=== PATIENT | female | born 2000 | race Caucasian/White ===

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

== ENCOUNTER 2022-01-15 19:41 | Emergency (ER) | payer SELFPAY ==
[~2022-01-15] VITALS: Ht 160 cm; Wt 86.2 kg
[~2022-01-15 19:41] MED LIST: LID5T TP; NAPR-54 PO
[2022-01-15 20:00] VITALS: BP 141/82
[2022-01-15] MEDS ORDERED: KETOROLAC 60 MG/2 ML VIAL IM ONE (20:10)
--- NOTE | 2022-01-15 20:10 | NUR ---
PT TAKEN TO BED 11.
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
--- NOTE | 2022-01-15 20:50 | NUR ---
ER MD AT BEDSIDE PERFORMING EXAM
--- NOTE | 2022-01-15 21:00 | NUR ---
ER MD AT BEDSIDE PERFORMING ULTRASOUND
[2022-01-15] MEDS ORDERED: IBUP-2213 PO (22:03)
[2022-01-15] MEDS ORDERED: ACET-8386 PO (22:03)
[2022-01-15 22:22] VITALS: BP 141/76
--- NOTE | 2022-01-15 22:22 | NUR ---
Patient discharged with v/s stable. Written and verbal after care instructions given and explained. Patient alert, oriented and verbalized understanding of instructions. Ambulatory with steady gait. All questions addressed prior to discharge. ID band removed. Patient advised to follow up with PMD. Rx of HYDROCODON, IBUPROFEN given. Opportunity to ask questions provided and answered.
== END 2022-01-15 22:22 | disposition home or self-care (01) ==
LOC: MED 19:41
DX: S13.4XXA Sprain of ligaments of cervical spine, initial encounter (principal); R10.30 Lower abdominal pain, unspecified; Z79.1 Long term (current) use of non-steroidal anti-inflammatories (NSAID); Z79.899 Other long term (current) drug therapy; V89.2XXA Person injured in unspecified motor-vehicle accident, traffic, initial encounter; Y93.89 Activity, other specified; Y92.410 Unspecified street and highway as the place of occurrence of the external cause; Y99.8 Other external cause status
CPT/HCPCS: 81002; 81025; 96372; 99284; J1885

== ENCOUNTER 2022-04-01 21:59 | Emergency (ER) | payer MEDICAID ==
[~2022-04-01 21:59] MED LIST changes: +ACET-8386 PO; +IBUP-2213 PO
--- NOTE | 2022-04-01 22:19 | NUR ---
called pt to lobby and outside. no answer at this time.
--- NOTE | 2022-04-01 22:31 | NUR ---
called pt to lobby and outside. no answer at this time.
--- NOTE | 2022-04-01 23:25 | NUR ---
PATIENT LEFT WITHOUT BEING SEEN BY DR. EDMONDS. NO FURTHER CARE PROVIDED FOR PATIENT.
--- NOTE | 2022-04-01 23:25 | NUR ---
called pt to lobby and outside. no answer at this time.
[2022-04-02] MEDS ORDERED: DIPH25TA53 PO (10:35)
[2022-04-02] MEDS ORDERED: PRED20TA5 PO (10:35)
== END 2022-04-01 23:25 | disposition left against medical advice (07) ==
LOC: MED 21:59
DX: R21 Rash and other nonspecific skin eruption (principal); Z53.21 Procedure and treatment not carried out due to patient leaving prior to being seen by health care provider

== ENCOUNTER 2022-04-02 09:26 | Emergency (ER) | payer MEDICAID ==
[~2022-04-02] VITALS: Ht 160 cm; Wt 85.5 kg
[2022-04-02 09:33] VITALS: BP 110/51
--- NOTE | 2022-04-02 09:41 | NUR ---
PT AMBULATED TO BED 8.
--- NOTE | 2022-04-02 09:47 | NUR ---
21 Y/O F BIB SELF C/O NAUSEA, ADOLFO ARMS, LEGS RASH X 1 MONTH. NO CHILLS OR FEVER AT THIS TIME. TEMP IS 98.3 NOW. DENIES PAIN. NKA NO MEDS PMH: DENIES
--- NOTE | 2022-04-02 10:29 | NUR ---
DR FLORES AT BEDSIDE.
[2022-04-02] MEDS ORDERED: PRED20TA5 PO (10:35)
[2022-04-02] MEDS ORDERED: DIPH25TA53 PO (10:35)
--- NOTE | 2022-04-02 10:51 | NUR ---
Patient discharged with v/s stable. Written and verbal after care instructions given and explained. Patient alert, oriented and verbalized understanding of instructions. Ambulatory with steady gait. All questions addressed prior to discharge. ID band removed. Patient advised to follow up with PMD. Rx of DIPHENHYDRAMINE HCI, PREDNISONE given. Opportunity to ask questions provided and answered.
--- NOTE | 2022-04-02 10:52 | NUR ---
Chart checked and completed. The patient's care was reviewed and supervised by Ambika Carlisle RN.
== END 2022-04-02 10:51 | disposition home or self-care (01) ==
LOC: MED 09:26
DX: L20.9 Atopic dermatitis, unspecified (principal); Z79.899 Other long term (current) drug therapy
CPT/HCPCS: 99283